=== PATIENT | male | born 1950 | race Caucasian/White ===

== ENCOUNTER 2020-03-05 08:17 | Emergency (ER) | payer MEDICARE, OTHER, SELFPAY ==
--- NOTE | 2020-03-05 08:41 | ED.WOUNDLAC ---
HPI - Wound/Laceration General Chief Complaint: Wound/Laceration Stated Complaint: laceration Time Seen by Provider: 03/05/20 08:50 Source: patient and RN notes reviewed Mode of arrival: ambulatory Limitations: no limitations History of Present Illness HPI narrative: 69-year-old male presents with concern for laceration to his forehead. Reports he was having a bad dream, was flailing in bed, fell out of bed and hit his head on the night table. Reports laceration between his eyebrows and an abrasion to his forehead. He denies nausea, vomiting, blurred vision. Reports mild frontal headache. Reports he takes blood thinners. Reports he is not up-to-date on his tetanus. Reports this incident happened approximately 1 hour ago. He drove himself to this clinic. Location: other (Head laceration) Related Data Home Medications Medication Instructions Recorded Confirmed Aspirin Low Dose 03/05/20 Vitamin D3 03/05/20 Zoloft 25 mg PO DAILY 03/05/20 03/05/20 acetaminophen [Tylenol Extra 1,000 mg PO BID PRN 03/05/20 03/05/20 Strength] atorvastatin 40 mg PO HS 03/05/20 03/05/20 clonazepam 0.5 mg PO DAILY 03/05/20 03/05/20 cyclosporine [Restasis] 1 drp OPHTHALMIC (EYE) Q12H 03/05/20 03/05/20 glimepiride 2 mg PO DAILY 03/05/20 03/05/20 lactobacillus combination no.8 03/05/20 [Adult Probiotic] metformin PO DAILY 03/05/20 omeprazole 40 mg PO DAILY 03/05/20 03/05/20 potassium chloride 5 meq IV ONCE 03/05/20 03/05/20 Allergies Allergy/AdvReac Type Severity Reaction Status Date / Time furosemide Allergy Severe dizziness-depleted Verified 03/05/20 09:07 K+ levels cetirizine [From Zyrtec] Allergy HEART Verified 03/05/20 09:06 PALP. DIZZINESS lithium Allergy Unknown Verified 03/05/20 09:10 sertraline [From Zoloft] Allergy Unknown Verified 03/05/20 09:10 NSAIDS (Non-Steroidal AdvReac HEART Verified 03/05/20 09:09 Anti-Inflamma PALPITATIONS Review of Systems Review of Systems: Narrative: CONSTITUTIONAL: Denies malaise, chills, sweats, or fever. EYES: Denies visual changes CARDIOVASCULAR: Denies chest pain, palpitations, or edema. RESPIRATORY: Denies cough or dyspnea. SKIN: Reports laceration to his forehead MUSCULOSKELETAL: Denies musculoskeletal pain NEUROLOGIC: Denies numbness, weakness. Reports mild frontal headache. All systems reviewed & are unremarkable except as noted in HPI and below PMFSH Comments At time of signature, agree with nursing past medical, surgical, social and family history. There is no relevant family history pertinent to the presenting complaint Exam Narrative: Exam Narrative: GENERAL: Well-appearing, well-nourished, and in no acute distress. HEAD: Normocephalic, traumatic laceration to the forehead, skin avulsion to the forehead EYES: PERRLA, conjunctivae clear, and EOMI. No nystagmus. ENT: Nares clear, no drainage. Mucous membranes moist. NECK: Supple. CHEST: No respiratory distress. Speaks in full sentences. HEART: Regular rate and rhythm. SKIN: Warm, dry, no rash. 4 cm irregular laceration into subcutaneous tissue noted to the forehead between the eyebrows, no bleeding at the time of admission. NEURO: Alert and oriented x3. No focal deficits. Cranial nerves II through XII grossly intact PSYCH: Normal mood and affect Course Course Emergency Course: Discussed with patient need for CT of the head due to head injury, use of blood thinners. Discussed with patient that I would suture his laceration, and recommend he be transferred to the emergency room for further evaluation, possible head CT. Patient agrees to go to the emergency room, however he refuses transfer via EMS, reports he does not have anyone who is able to drive himself. Patient understands that it is against my medical advice that he drive himself to the emergency room. Patient is aware of diagnosis, understands and agrees to treatment plan. Anticipatory guidance given. Patient agrees to proceed to the emerge
[2020-03-05 08:51] VITALS: BP 162/80; PULSE 62; RESP 18; TEMP 37.1; O2SAT 99
[2020-03-05] MEDS: TETANUS,DIPHTHERIA,AC PERTUSSIS ADULT (0.5 ML) BOOSTRIX IM (09:38)
== END 2020-03-05 10:54 | disposition short-term general hospital (02) ==
PROVIDERS: Emergency Provider Nurse Practitioner; PCP Family Medicine
DX: S01.81XA Laceration without foreign body of other part of head, initial encounter (principal); W06.XXXA Fall from bed, initial encounter; Z23 Encounter for immunization; Z86.73 Personal history of transient ischemic attack (TIA), and cerebral infarction without residual deficits; K21.9 Gastro-esophageal reflux disease without esophagitis; M19.90 Unspecified osteoarthritis, unspecified site; E11.9 Type 2 diabetes mellitus without complications
CPT/HCPCS: 12013; 90471; 90715; 99212; G0463

== ENCOUNTER 2020-03-16 17:19 | Emergency (ER) | payer MEDICARE, OTHER, SELFPAY ==
--- NOTE | 2020-03-16 17:30 | ED.SKABFB ---
HPI - Skin/Abscess/Foreign Bdy General Chief complaint: Skin/Abscess/Foreign Body Stated complaint: stitches removal Time Seen by Provider: 03/16/20 17:31 Source: patient and RN notes reviewed History of Present Illness HPI narrative: Patient is a 69-year-old male who presents the urgent care requesting stitch removal to the bridge of the nose. Patient states that on 05 March he fell out of bed due to a night tear, and it was noted in his past charts that 7 stitches were placed to the bridge of the nose. At that time patient was advised to go to the emergency room and he states he went to [facility] in the CT scan was negative at that time. Patient denies any complications since his last visit. Patient states he did forget to take his blood pressure medication this morning. No other acute complaints. No acute distress noted. Patient read the plan of care. Related Data Home Medications Medication Instructions Recorded Confirmed allopurinol [Zyloprim] 300 mg PO DAILY 03/16/20 03/16/20 amlodipine [Norvasc] 5 mg PO DAILY 03/16/20 03/16/20 aspirin 81 mg PO DAILY 03/16/20 03/16/20 cholecalciferol (vitamin D3) 50 mcg PO DAILY 03/16/20 03/16/20 [Vitamin D3] clonazepam [Klonopin] 0.5 mg PO BID 03/16/20 03/16/20 clopidogrel [Plavix] 75 mg PO DAILY 03/16/20 03/16/20 eszopiclone [Lunesta] 1 mg PO HS 03/16/20 03/16/20 isosorbide mononitrate 30 mg PO DAILY 03/16/20 03/16/20 levothyroxine [Synthroid] 75 mcg PO DAILY 03/16/20 03/16/20 losartan-hydrochlorothiazide 1 tablet PO DAILY 03/16/20 03/16/20 metformin [Glucophage] 500 mg PO BID 03/16/20 03/16/20 metoprolol tartrate [Lopressor] 100 mg PO TID 03/16/20 03/16/20 sertraline [Zoloft] 50 mg PO DAILY 03/16/20 03/16/20 simvastatin [Zocor] 10 mg PO DAILY 03/16/20 03/16/20 Allergies Allergy/AdvReac Type Severity Reaction Status Date / Time furosemide Allergy Severe dizziness-depleted Verified 03/16/20 17:35 K+ levels cetirizine [From Zyrtec] Allergy HEART Verified 03/16/20 17:35 PALP. DIZZINESS lithium Allergy Unknown Verified 03/16/20 17:35 sertraline [From Zoloft] Allergy Unknown Verified 03/16/20 17:35 NSAIDS (Non-Steroidal AdvReac HEART Verified 03/16/20 17:35 Anti-Inflamma PALPITATIONS Review of Systems Review of Systems: Narrative: CONSTITUTIONAL: Denies fever, chills, or sweats. EYES: Denies visual changes, redness, or discharge. ENT: Denies rhinorrhea, congestion, sore throat, or otalgia. CARDIOVASCULAR: Denies chest pain, palpitations, or edema. RESPIRATORY: Denies cough or dyspnea. GASTROINTESTINAL: Denies abdominal pain, nausea, vomiting, or diarrhea. GENITOURINARY: Denies dysuria or hematuria. SKIN: Requesting stitch removal to the bridge of the nose, 7 sutures MUSCULOSKELETAL: Denies back pain, joint pain, or myalgia. NEUROLOGIC: Denies headache, numbness, or weakness. All other systems reviewed are negative, except as documented in HPI. PMFSH Social History Social History Gender identity (if verbalized by the patient): Male Comments At the time of my signature, I reviewed and agree with the nursing past medical, surgical, social, and family history. There is no relevant family history pertinent to the patient complaint. Exam Narrative: Exam Narrative: GENERAL: This is a well-nourished, well-developed patient, in no apparent distress. HEAD: normocephalic, atraumatic. EYES: PERRL. Sclera clear/white. Vision is grossly intact. EARS: External ears normal NOSE: External nose normal with no obvious nasal discharge, nares without redness, no rhinorrhea. THROAT: Mucous membranes moist NECK: Neck supple SKIN: Approximated with 7 sutures, 5 cm linear laceration to the bridge of the nose NEURO: awake, alert, and oriented to person, place and time. There were no obvious focal neurologic abnormalities. EXTREMITIES: No clubbing, cyanosis, or edema. Course Vital Signs Vital signs: Vital Signs Temperature 98.7 F 03/16/20 17:33 Pulse Rate
[2020-03-16 17:33] VITALS: BP 181/97; PULSE 80; RESP 18; TEMP 37.1; O2SAT 98
== END 2020-03-16 17:45 | disposition home or self-care (01) ==
PROVIDERS: Emergency Provider Nurse Practitioner Family; PCP Family Medicine
DX: S01.21XD Laceration without foreign body of nose, subsequent encounter (principal); W06.XXXD Fall from bed, subsequent encounter; Z86.73 Personal history of transient ischemic attack (TIA), and cerebral infarction without residual deficits; K21.9 Gastro-esophageal reflux disease without esophagitis; M19.90 Unspecified osteoarthritis, unspecified site; E11.9 Type 2 diabetes mellitus without complications
CPT/HCPCS: 99211; G0463

== ENCOUNTER 2021-01-04 21:28 | Emergency (ER) | payer MEDICARE, OTHER, SELFPAY ==
[2021-01-04 21:29] VITALS: BP 0/0; PULSE 0; RESP 0
--- NOTE | 2021-01-04 21:30 | PC.NURSE ---
See code sheet
[2021-01-04 21:56] VITALS: BP 0/0; PULSE 0; RESP 0; O2SAT 0
--- NOTE | 2021-01-04 21:58 | ED.CPR ---
HPI - CPR General Chief Complaint: Cardiac Arrest/CPR Stated Complaint: Cardiac Arrest Time Seen by Provider: 01/04/21 21:53 History of Present Illness HPI narrative: Patient is a 70-year-old male who presents to the ER in cardiac arrest. Last known normal was 2044. About 20 to 25 minutes later patient's found him unresponsive in his chair. EMS was contacted. Upon arrival patient found sitting in his chair. Prolonged time getting to the house to the door being locked. CPR started. In route patient received epinephrine x2. Accu-Chek was greater than 100. Patient was intubated with an ET tube by EMS. Patient with known history of coronary disease and also recent knee surgery in the last 1 to 2 months. Related Data Home Medications Medication Instructions Recorded Confirmed allopurinol [Zyloprim] 300 mg PO DAILY 03/16/20 03/16/20 amlodipine [Norvasc] 5 mg PO DAILY 03/16/20 03/16/20 aspirin 81 mg PO DAILY 03/16/20 03/16/20 cholecalciferol (vitamin D3) 50 mcg PO DAILY 03/16/20 03/16/20 [Vitamin D3] clonazepam [Klonopin] 0.5 mg PO BID 03/16/20 03/16/20 clopidogrel [Plavix] 75 mg PO DAILY 03/16/20 03/16/20 eszopiclone [Lunesta] 1 mg PO HS 03/16/20 03/16/20 isosorbide mononitrate 30 mg PO DAILY 03/16/20 03/16/20 levothyroxine [Synthroid] 75 mcg PO DAILY 03/16/20 03/16/20 losartan-hydrochlorothiazide 1 tablet PO DAILY 03/16/20 03/16/20 metformin [Glucophage] 500 mg PO BID 03/16/20 03/16/20 metoprolol tartrate [Lopressor] 100 mg PO TID 03/16/20 03/16/20 sertraline [Zoloft] 50 mg PO DAILY 03/16/20 03/16/20 simvastatin [Zocor] 10 mg PO DAILY 03/16/20 03/16/20 Allergies Allergy/AdvReac Type Severity Reaction Status Date / Time furosemide Allergy Severe dizziness-depleted Verified 03/16/20 17:35 K+ levels cetirizine [From Zyrtec] Allergy HEART Verified 03/16/20 17:35 PALP. DIZZINESS lithium Allergy Unknown Verified 03/16/20 17:35 sertraline [From Zoloft] Allergy Unknown Verified 03/16/20 17:35 NSAIDS (Non-Steroidal AdvReac HEART Verified 03/16/20 17:35 Anti-Inflamma PALPITATIONS Review of Systems Review of Systems: ROS unobtainable: Yes unobtainable due to medical condition PMFSH Past Medical History Medical History (Updated 01/04/21 @ 23:00 by Arie Caban MD) Coronary artery disease Hyperlipidemia Hypertension Hypothyroidism Obstructive sleep apnea Surgical History Surgical History (Updated 01/04/21 @ 22:07 by Arie Caban MD) History of back surgery History of cholecystectomy History of percutaneous coronary intervention Social History Social History (Updated 01/04/21 @ 22:08 by Arie Caban MD) Social History: Gender identity (if verbalized by the patient): Male Exam Narrative: Exam Narrative: GENERAL: Unresponsive, intubated, active CPR being performed. HEAD: Normocephalic, atraumatic. EYES: Pupils fixed and mid dilated. ENT: Mucous membranes moist. ET tube present. NECK: Supple. No JVD. CHEST: Clear to auscultation when patient is bagged by respiratory. No spontaneous respirations. HEART: No central or peripheral pulses. ABDOMEN: Soft, nontender, nondistended EXTREMITIES: No deformity of the upper or lower extremities. No spontaneous movements. Right tibial IO present. SKIN: Cool, dry, no rash. NEURO: GCS 3. No gag reflex. No corneal reflex. Course Course Emergency Course: Patient arrived in the ER and CPR continued. Girard scope used to confirm ET tube placement by EMS. Patient received a total of 8 epinephrines. He also was administered 1 amp of sodium bicarb, 1 amp of D50, and received 100 mg of TPA. tPA was administered due to recent surgical history and possibly patient may have had a massive PE causing cardiac arrest. Patient had asystole at all pulse checks with the exception of 1 where patient had PEA. Final pulse check patient was in asystole. Resuscitative efforts were terminated and patient pronounced as expir
[2021-01-04 22:02] LABS: Glucose Point of Care 73 (65-105)
--- NOTE | 2021-01-05 00:34 | PC.NURSE ---
[facility] contacted about patient
--- NOTE | 2021-01-05 01:42 | PC.NURSE ---
case number for [facility] is [id number], will call us as soon as they know if patient is a donor.
== END 2021-01-04 21:56 | disposition expired ==
PROVIDERS: Emergency Provider Emergency Medicine; PCP Family Medicine
DX: I46.9 Cardiac arrest, cause unspecified (principal); I25.10 Atherosclerotic heart disease of native coronary artery without angina pectoris; E78.5 Hyperlipidemia, unspecified; I10 Essential (primary) hypertension; E03.9 Hypothyroidism, unspecified; G47.30 Sleep apnea, unspecified
CPT/HCPCS: 36680; 82948; 92950; 99285; J0171; J2997